=== PATIENT | male | born 1980 | race Caucasian/White ===

== ENCOUNTER 2018-12-14 20:44 | Emergency (ER) | payer BC ==
--- NOTE | 2018-12-14 22:01 | EDM.PDOC ---
ED HPI GENERAL MEDICAL PROBLEM - General Chief Complaint: ENT Problem Stated Complaint: SOMETHING IN THROAT Time Seen by Provider: 12/14/18 21:22 Source of Information: Reports: Patient History Limitations: Reports: No Limitations - History of Present Illness INITIAL COMMENTS - FREE TEXT/NARRATIVE: 38 y/o male presented to ER with cc "something is in his throat." He states he woke up about 1.5 hours ago and has the sensation something is stuck in his throat. He states yesterday his throat started hurting. He denies difficulty swallowing, SOB or cough. He reports having Marfan Syndrome. Onset: Today, Sudden Onset Date: 12/14/18 Onset Time: 22:00 Duration: Getting Worse Location: Reports: Other (throat) Quality: Reports: Ache Severity: Mild Improves with: Reports: None Worsens with: Reports: Other (swallowing) Associated Symptoms: Denies: Cough, Fever/Chills, Nausea/Vomiting, Rash, Shortness of Breath, Weakness - Related Data Allergies Allergy/AdvReac Type Severity Reaction Status Date / Time No Known Allergies Allergy Verified 12/14/18 20:54 Home Meds: Home Meds Aspirin 325 mg PO DAILY 12/14/18 [History] Atenolol 100 mg PO DAILY 12/14/18 [History] Esomeprazole Magnesium [Nexium] 20 mg PO DAILY 12/14/18 [History] Losartan [Cozaar] 50 mg PO DAILY 12/14/18 [History] Past Medical History HEENT History: Reports: Impaired Vision Cardiovascular History: Reports: Hypertension Other Cardiovascular History: marfan Gastrointestinal History: Reports: GERD - Past Surgical History Cardiovascular Surgical History: Reports: Valve Replacement, Other (See Below) Other Cardiovascular Surgeries/Procedures: aortic mesh Social & Family History - Tobacco Use Smoking Status *Q: Never Smoker - Recreational Drug Use Recreational Drug Use: No ED ROS ENT - Review of Systems Review Of Systems: See Below Constitutional: Denies: Fever, Chills HEENT: Reports: Throat Pain, Other ("sensation something is in his throat.") Respiratory: Denies: Shortness of Breath Cardiovascular: Denies: Chest Pain Endocrine: Denies: Fatigue GI/Abdominal: Reports: No Symptoms : Reports: No Symptoms Musculoskeletal: Reports: No Symptoms Skin: Reports: No Symptoms Neurological: Reports: No Symptoms Psychiatric: Reports: No Symptoms Hematologic/Lymphatic: Reports: No Symptoms Immunologic: Reports: No Symptoms ED EXAM, ENT - Physical Exam Exam: See Below Exam Limited By: No Limitations General Appearance: Alert, WD/WN, No Apparent Distress Nose: Normal Inspection, Normal Mucousa, No Blood Mouth/Throat: Normal Inspection, Normal Gums, Normal Lips, Normal Oropharynx, Normal Teeth, Uvular Edema. No: Throat Swelling Head: Atraumatic, Normocephalic Neck: Normal Inspection, Supple, Non-Tender, Full Range of Motion Respiratory/Chest: No Respiratory Distress, Lungs Clear, Normal Breath Sounds, No Accessory Muscle Use, Chest Non-Tender Cardiovascular: Normal Peripheral Pulses, Regular Rate, Rhythm, No Edema, No Gallop, No JVD, No Murmur, No Rub Neurological: Alert, Oriented, CN II-XII Intact, Normal Cognition, Normal Gait Psychiatric: Normal Affect, Normal Mood Skin: Warm, Dry, Intact, Normal Color, No Rash Lymphatic: No Adenopathy Course - Vital Signs Last Recorded V/S: Last Vital Signs Temp 97.7 F 12/14/18 20:52 Pulse 75 12/14/18 20:52 Resp 16 12/14/18 20:52 BP 200/72 H 12/14/18 20:52 Pulse Ox 98 12/14/18 20:52 - Orders/Labs/Meds Orders: Active Orders 24 hr Category Date Time Status CULTURE STREP A CONFIRMATION [RM] Stat Lab 12/14/18 21:50 Results STREP SCRN A RAPID W CULT CONF [RM] Stat Lab 12/14/18 21:50 Results - Re-Assessments/Exams Free Text/Narrative Re-Assessment/Exam: 12/14/18 22:27 38 y/o male presented to ER with cc feeling like something is stuck in his throat when he woke up this evening. His strep screen was negative. I will discharge home with instructions to follow up with his PCP for sleep studies. He verbalized understanding and is comfortable with plan for discharge. He is tolerating P.O. challenge. Instructed to return to the ER for any new or acute worsening symptoms. Instructed him to take his scheduled Atenolol for his elevated B/P. Departure - Departure Time of Disposition: 22:33 Disposition: Home, Self-Care 01 Clinical Impression: Uvulitis - Discharge Information Instructions: Uvulitis Referrals: Zeyad Boone MD [Primary Care Provider] - Forms: ED Department Discharge Additional Instructions: you have been diagnosis with uvulitis. Your strep screen is negative. I recommend you follow up with your PCP for a sleep study. Return to the ER for any new or acute worsening symptoms. - My Orders Last 24 Hours: My Active Orders 12/14/18 21:50 CULTURE STREP A CONFIRMATION [RM] Stat STREP SCRN A RAPID W CULT CONF [RM] Stat - Assessment/Plan Last 24 Hours: My Active Orders 12/14/18 21:50 CULTURE STREP A CONFIRMATION [RM] Stat STREP SCRN A RAPID W CULT CONF [RM] Stat
== END 2018-12-14 22:50 | disposition home or self-care (01) ==
LOC: JD.ED 20:44
DX: K12.2 Cellulitis and abscess of mouth (principal); I10 Essential (primary) hypertension; K21.9 Gastro-esophageal reflux disease without esophagitis; Z79.82 Long term (current) use of aspirin; Z79.899 Other long term (current) drug therapy
CPT/HCPCS: 87081; 87430; 99282; 99284